=== PATIENT | female | born 1940 | race Caucasian/White ===

== ENCOUNTER 2017-06-27 15:46 | Inpatient (IN) | payer MEDICARE, OTHER ==
[2017-06-26 22:54] LABS: A/G RATIO 1.5 (0.7-1.9); ALBUMIN 4.1 G/DL (3.5-5.0); CALCIUM, SERUM 9.4 MG/DL (8.5-10.4); CHLORIDE, SERUM 98 MMOL/L (96-112); CO2 (CARBON DIOXIDE) 29 MMOL/L (24-34); CREATININE 0.89 MG/DL (0.55-1.02); GFR AFRICAN AMERICAN 73 ML/MIN (>=60); GFR NON AFRICAN AMERICAN 63 ML/MIN (>=60); GLOBULIN 2.7 G/DL (2.5-4.1); SGOT(AST) 134 U/L (5-40); SGPT(ALT) 257 U/L (5-65); SODIUM, SERUM 135 MMOL/L (135-148); TOTAL PROTEIN 6.8 G/DL (6.0-8.5)
[2017-06-26 22:56] LABS: ALKALINE PHOSPHATASE 315 U/L (45-117); BUN (BLOOD UREA NITROGEN) 10 MG/DL (6-23); GLUCOSE, SERUM 98 MG/DL (60-99); POTASSIUM, SERUM 3.8 MMOL/L (3.5-5.3); TOTAL BILIRUBIN 4.4 MG/DL (0-1.2)
[~2017-06-27] VITALS: Ht 152.4 cm; Wt 53.1 kg
--- NOTE | ~2017-06-27 | EGD ---
EGD REPORT [facility] [address] [place]. 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 Estimated blood loss: None. Procedure: Pre-Anesthesia Assessment: - ASA Grade Assessment: III - A patient with severe systemic disease. After obtaining informed consent, the endoscope was passed under direct vision. Throughout the procedure, the patient's blood pressure, pulse, and oxygen saturations were monitored continuously. The Endoscope was introduced through the mouth, and advanced to the second part of duodenum. The upper EUS was accomplished without difficulty. The patient tolerated the procedure well. Findings: Endosonographic Finding : A hypoechoic round mass was identified endosonographically in the ampulla. The mass measured 26 mm by 24 mm in maximal cross-sectional diameter. The endosonographic borders were well-defined. There was dilation in the common bile duct which measured up to 16 mm. There was no sign of significant endosonographic abnormality in the entire pancreas. Endosonographic imaging of the visualized portion of the liver showed no abnormalities. No lymph nodes were visualized in the celiac region (level 20), peripancreatic region and merced hepatis region. A limited doppler examination was performed and revealed no significant vascular abnormalities. Impression: - A 26 x 24 mm mass was found in the ampulla. - There was dilation in the common bile duct which measured up to 16 mm. - There was no sign of significant pathology in the entire pancreas. - No lymph nodes were visualized in the celiac region (level 20), peripancreatic region and merced hepatis EGD REPORT [address] [address] NAME: INGA DAVIES : 40 STATUS : DIS IN PAT#: [id number] AGE: 76 ADM/REG DATE : 06/27/17 MR#: [id number] REPORT SERV DATE: 07/06/17 DICTATED BY: JIM KAHN DATE: 07/06/17 REPORT STATUS : Draft TRANSCRIBED BY: [employer] DATE: 07/06/17 region. - A limited doppler examination was performed and revealed no significant vascular abnormalities. Recommendation: - Perform an ERCP today. Procedure Code(s): --- Professional --- 93493, Esophagogastroduodenoscopy, flexible, transoral; with endoscopic ultrasound examination limited to the esophagus, stomach or duodenum, and adjacent structures Diagnosis Code(s): --- Professional --- K83.8, Other specified diseases of biliary tract CPT copyright 2013 [employer] [place] [employer]. All rights reserved. The codes documented in this report are preliminary and upon director of reimbursement review may be revised to meet current compliance requirements. Jim Kahn MD JIM KAHN MD 06/29/2017 10:51 AM This report has been signed electronically. Number of Addenda: 0 Note Initiated On: 06/29/2017 10:06 AM Scope Withdrawal Time 0 hours 0 minutes 0 seconds [address] [place] [address]
--- NOTE | ~2017-06-27 | DS ---
Discharge Summary [id number] [place]. [address] NAME: MARIALUISA DAVIES : 40 STATUS : DIS IN PAT#: [id number] AGE: 76 ADM/REG DATE : 06/27/17 MR#: [id number] REPORT SERV DATE: 07/02/17 DICTATED BY: ALFREDO KUMAR II DATE: 07/01/17 REPORT STATUS : Draft TRANSCRIBED BY: MODL DATE: 07/01/17 ADMISSION DATE: 06/27/2017 DISCHARGE DATE: 07/01/2017 DISCHARGE DIAGNOSES: 1. Acute constipation. 2. Chronic hypertension. 3. Paroxysmal atrial fibrillation. 4. Biliary obstruction, status post PCT tube. 5. Elevated liver enzymes. 6. Ampullary mass. CONSULTATIONS: 1. Dr. Weaver, Surgery. 2. Placido Collins ASSISTANT TO THE CEO, GI. PERTINENT TESTS AND PROCEDURES: 1. CT of abdomen and pelvis with and without contrast, obtained outpatient on 06/27/2017 prior to this admission. Impression:. a. Severe intra and extrahepatic biliary obstruction secondary to 2.7 cm enhancing mass at level of the ampulla of Vater. 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 Unlikely to be a pancreatic adenocarcinoma based on degree of hyperenhancement. No significant pancreatic ductal dilatation. No infiltration of mass beyond duodenum or pancreatic head. b. No evidence of adenopathy or metastatic disease in abdomen or pelvis. c. Moderate fecal burden in the rectum. 2. Upper EUS, 06/29/2017, impression: 26 x 24 mm mass found in the ampulla. Dilation of common bile duct measured up to 16 mm. No sign of significant pathology in the entire pancreas. No lymph nodes visualized in celiac region, peripancreatic region, or merced hepatis region. 3. ERCP performed, 06/29/2017, the biliary pancreatic junction was obstructed by what appeared to be a mass. Friability and contact bleeding with engaging the papilla with sphincterotome making cannulation attempts very difficult. Ampulla was biopsied. Failed cannulation of the common bile duct. 4. Successful placement of 10-Mongolian pigtail biliary drainage catheter. Drainage catheter past obstructing mass in the distal common bile duct achieving internal and external drainage of the biliary tree, 06/30/2017. HOSPITAL COURSE: Please refer to history and physical dated 06/28/2017 provided by Alicja Neves, nurse practitioner, for complete details pertaining to patient's initial presentation upon admission and health history. Also. Refer to consultations dated 06/28/2017 and 06/29/2017 provided by Placido Gonzalez, nurse practitioner, GI, and Dr. Grabiel Weaver, Surgery. Briefly, the patient is a 76-year-old female with a past medical history significant for Discharge Summary [address] [address] NAME: MARIALUISA DAVIES : 40 STATUS : DIS IN PAT#: [id number] AGE: 76 ADM/REG DATE : 06/27/17 MR#: [id number] REPORT SERV DATE: 07/02/17 DICTATED BY: ALFREDO KUMAR II DATE: 07/01/17 REPORT STATUS : Draft TRANSCRIBED BY: [employer] DATE: 07/01/17 hypertension and paroxysmal atrial fibrillation, who presented to [facility] for direct admission arranged by primary care provider for chief complaint of intractable abdominal pain, nausea, and decreased appetite in the setting of biliary obstruction secondary to mass. Prior to this admission, the patient reported feeling sick for approximately two weeks with progressive symptoms to include intractable right upper quadrant abdominal pain, intermittent nausea, and significantly decreased appetite for the past week. The patient was being followed by primary care physician for progressive abdominal pain in the setting of elevated liver enzymes. The patient underwent outpatient CT of abdomen and pelvis with and without contrast on the day of hospital admission for further evaluation of progressively worsening abdominal pain and nausea. CT report indicated severe intra and extrahepatic biliary obstruction secondary to a mass at the level of the ampulla of Vater. During this admission, Surgery and Gastroenterology were consulted for evaluation and recommendations to include EUS/ERCP with possible stent placement and surgical consideration. The patient underwent EUS and ERCP on 06/29/2017. Failed cannulation of the common bile duct secondary to friability of mass and contact bleeding. The patient underwent successful placement of PCT tube on 06/30/2017. Per Surgery recommendations, the patient presented with no evidence of the need for acute surgical intervention. Surgery discussed with the patient that she most likely has a malignancy of the ampulla. Assuming biopsy obtained during ERCP confirms malignancy, the patient will likely need a Whipple procedure or pancreaticoduodenectomy. Preliminary pathology report regarding biopsy of ampullary mass show benign small bowel mucosa within normal limits. No evidence of neoplasm. Step sections are pending and will be followed by Dr. Weaver, Surgery. On the day of discharge, the patient reports "feeling better than she has felt in two weeks." The patient is able to tolerate full liquid diet without nausea, vomiting, or abdominal pain. The patient's only complaint at the time of discharge is constipation. The patient is eager to return home and will follow up with Dr. Weaver for repeat lab work and biopsy results in one week. 1. Acute constipation. The patient has positive bowel sounds throughout all quadrants and positive flatus. No abdominal distention or pain. The patient will receive one dose of MiraLAX prior to discharge and continue MiraLAX p.o. daily at home and Senokot. 2. Chronic hypertension. The patient's blood pressure has been stable throughout this admission. Continue home dose of atenolol. 3. Paroxysmal atrial fibrillation. Requested ignition specialist medical records upon admission, however, never received. The patient's heart rate has been controlled, regular rhythm, throughout this admission. Follow up with Dr. Paulino, ignition specialist, at [facility] as routinely scheduled. 4. Acute biliary obstruction. This is secondary to ampullary mass. The patient tolerated PCT tube placement well. The patient's liver enzymes remain elevated; however, expect Discharge Summary [address] [address] NAME: MARIALUISA DAVIES : 40 STATUS : DIS IN PAT#: [id number] AGE: 76 ADM/REG DATE : 06/27/17 MR#: [id number] REPORT SERV DATE: 07/02/17 DICTATED BY: ALFREDO KUMAR II DATE: 07/01/17 REPORT STATUS : Draft TRANSCRIBED BY: MODL DATE: 07/01/17 numbers to start trending down within the next several days to two weeks. Upon admission, the patient's total bilirubin was reported to be 4.4 and continued to trend upward during this admission to 9.0 on 06/30/2017 prior to placement of PCT tube. On day of discharge, total bilirubin 8.9. Alkaline phosphatase, ALT, and AST are trending downward. The patient will follow up with Dr. Weaver in one week for repeat labs. 5. New diagnosis of mass at the level of ampulla of Vater. The patient is status post PCT tube with likely surgical intervention in the near future. CA-125 of 10.8. CA-19-9 of 178.6. Future plan of care to be determined per Dr. Weaver, Surgery. DISCHARGE CONDITION: At the time of discharge, the patient is hemodynamically stable. DISCHARGE DIET: Regular diet as tolerated. DISCHARGE MEDICATIONS: 1. Atenolol 25 mg tablet p.o. daily at bedtime. 2. Multivitamin one tablet p.o. daily at bedtime. 3. Artificial tears one drop to both eyes three times daily as needed. 4. MiraLAX 17 g p.o. every a.m., hold for diarrhea. 5. Senokot two tablets p.o. h.s. as needed. DISPOSITION INSTRUCTIONS: 1. Follow up with Dr. Weaver, Surgery, in one week. The patient instructed to call office, 07/02/2017, and to schedule appointment. 2. The patient and her daughter were instructed on signs and symptoms that would indicate emergent return to the emergency department. Signs and symptoms include acute onset of fever of 100.4 or greater lasting more than one hour, intractable chills, nausea, vomiting, abdominal distention, change in PCT tube output to include significant decrease in output or consistent bloody drainage. Primary care provider, Dr. Rogerio Ventura. Primary general surgeon, Dr. Weaver. Collaborating physician, Dr. Alfredo Kumar. [facility] MARCELO Gibson Alfredo Kumar II, MD / [id number] Discharge Summary [address] [place] [place] [address] NAME: MARIALUISA DAVIES : 40 STATUS : DIS IN [facility]#: [id number] AGE: 76 ADM/REG DATE : 06/27/17 MR#: [id number] REPORT SERV DATE: 07/02/17 DICTATED BY: ALFREDO KUMAR II DATE: 07/01/17 REPORT STATUS : Draft TRANSCRIBED BY: [employer] DATE: 07/01/17 CC: MD Rogerio Mckay II, M.D. Carol Gruver, M.D. Destin Griffin-Trussell, FNP Richard Hunter Jennings III, M.D.
--- NOTE | ~2017-06-27 | CN ---
Consultation Report [facility] [address] [place]. [address] NAME: INGA DAVIES : 40 STATUS : ADM IN PAT#: [id number] AGE: 76 ADM/REG DATE : 06/27/17 MR#: [id number] REPORT SERV DATE: 06/28/17 DICTATED BY: KOJO SALAZAR DATE: 06/28/17 REPORT STATUS : Draft TRANSCRIBED BY: MODL DATE: 06/28/17 GI CONSULTATION DATE OF CONSULTATION: 06/28/2017 Inga Davies is a 76-year-old female patient admitted on 06/27/2017. REQUESTING PHYSICIAN: Dr. Weaver. REASON FOR CONSULTATION: Evaluation and management of patient for endoscopic ultrasound/ERCP with possible stent placement. HISTORY OF PRESENT ILLNESS: Ms. Davies is a very pleasant 76-year-old female patient, who has been seen by Dr. Magan Clark in the past, who presented to [facility] as a direct admission from her primary care physician's office, Dr. Ventura, after abnormal CT scan and laboratory values were found. She gives me a history of 2 weeks of epigastric right upper quadrant abdominal pain, early satiety, and anorexia. She states that overall she reports that she was feeling "sick" with some vague nausea around two weeks ago. Her symptoms have progressively gotten worse. She states that she would eat, within 2 to 3 hours she would have burning in the right upper quadrant and epigastric region. She would feel bloated and distended. She states she never vomited but she was extremely nauseous. She has developed yellowing of the skin within the last week. She has been itching for the last three days. She went to see Dr. Ventura for these complaints. He obtained labs which showed elevation in her liver function testing. After these came back, he sent her for a CT scan of the abdomen and pelvis on the with and without contrast. This exam showed that she had severe intra and extrahepatic biliary obstruction secondary to a 2.7 cm enhancing mass that was found at the level of the ampulla of Vater. Findings were concerning for ampullary carcinoma, less likely neuroendocrine tumor. There was no significant pancreatic ductal dilatation. No infiltration of the mass beyond the duodenum or pancreatic head. Also there was no evidence of adenopathy or metastatic disease in the abdomen or pelvis. Initially Dr. Weaver was consulted for surgical evaluation. After evaluation of the patient, he felt an endoscopic ultrasound/ERCP with tissue sampling and stent placement would be beneficial prior to surgical intervention, thus GI consultation was requested. I have seen, assessed, and discussed with Ms. Davies, ERCP with stent placement as well as endoscopic ultrasound. The risks, benefits, alternatives, and complications were detailed for her to include, but not limited to the risk of bleeding, perforation, infection, reaction to medication, as well as cardiac and pulmonary side effects. She is agreeable to proceed. PAST MEDICAL HISTORY: She has a past medical history that is positive for hypertension, paroxysmal atrial fibrillation; no anticoagulants on board. SURGERIES: Include cataract bilaterally, arteriogram. PROCEDURES: Include EGD and colonoscopy. Consultation Report [address] [place]. [address] NAME: INGA DAVIES : 40 STATUS : ADM IN [facility]#: [id number] AGE: 76 ADM/REG DATE : 06/27/17 MR#: [id number] REPORT SERV DATE: 06/28/17 DICTATED BY: KOJO SALAZAR DATE: 06/28/17 REPORT STATUS : Draft TRANSCRIBED BY: [employer] DATE: 06/28/17 FAMILY HISTORY: She states that her father had some type of stomach/small bowel cancer with metastasis to the bones. Her mother at 86 secondary to complications from contraction of C. diff. She has other family members who were positive for some type of biliary cancer. ALLERGIES: ARE LISTED TO SULFA AND EPINEPHRINE. HOME MEDICATIONS: Artificial Tears, Tenormin, and a multivitamin. REVIEW OF SYSTEMS: A 10-point review of systems has been obtained with pertinent positives being addressed in the history of present illness. PHYSICAL EXAMINATION: VITAL SIGNS: Temperature is 98.5, pulse is 59, respirations of 16, and blood pressure 142/61. NEUROLOGIC: Physical exam reveals an alert, thin female, resting in bed. GENERAL: She is cooperative. She is in no acute distress. She is awake, alert, and oriented x3. HEAD, EARS, EYES, NOSE, AND THROAT: She has notable scleral icterus. Pupils are equal, round, and reactive to light and accommodation. Normocephalic and atraumatic. NECK: Supple. No JVD. No palpable nodes. LUNGS: Clear anteriorly with normal respiratory effort exhibited and equal expansion. CARDIOVASCULAR SYSTEM: Regular rate and rhythm. ABDOMEN: Soft and flat with right upper quadrant tenderness to palpation. Exquisitely tender right underneath the right rib cage. No rebound or guarding. Active bowel sounds. EXTREMITIES: No edema. Normal distal pulses. SKIN: Warm, dry, and intact with notable jaundice. PERTINENT LABORATORY DATA: Sodium 137, potassium is 3.9, BUN is 10, and creatinine 0.73. White count 4.4, hemoglobin 10.3, and hematocrit of 29.4. Total bilirubin is 5.9, alkaline phosphatase 298, ALT 227, AST 156, lipase 227; CA-125 was checked and 10.8. ASSESSMENT AND PLAN: 1. Epigastric abdominal pain in right upper quadrant. 2. Nausea, early satiety, and anorexia. 3. Biliary obstruction secondary to a 2.7 cm mass found at the level of the ampulla of Vater. 4. Elevated LFTs secondary to biliary obstruction secondary to a 2.7 cm mass found at the level of the ampulla of Vater. 5. Anorexia. PLAN: 1. Hold her heparin. 2. Sips of liquids with n.p.o. after midnight. Consultation Report [address] [place]. [address] NAME: INGA DAVIES : 40 STATUS : ADM IN [facility]#: [id number] AGE: 76 ADM/REG DATE : 06/27/17 MR#: [id number] REPORT SERV DATE: 06/28/17 DICTATED BY: KOJO SALAZAR DATE: 06/28/17 REPORT STATUS : Draft TRANSCRIBED BY: CE[employer] DATE: 06/28/17 3. ERCP with possible stent placement and endoscopic ultrasound on 06/29/2017, by Dr. Morris. 4. We will obtain morning labs. 5. We will administer preprocedure rectal indomethacin. We will follow. Other recommendations to follow endoscopy. [facility]CELESTE SAMARIA Lester / [id number] CC: MD Rogerio Mckay II, M.D.
--- NOTE | ~2017-06-27 | EGD ---
EGD REPORT [facility] [address] [address] NAME: MARIALUISA DAVIES : 40 STATUS : DIS IN PAT#: [id number] AGE: 76 ADM/REG DATE : 06/27/17 MR#: [id number] REPORT SERV DATE: 07/06/17 DICTATED BY: ALIX KAHN DATE: 07/06/17 REPORT STATUS : Draft TRANSCRIBED BY: [employer] DATE: 07/06/17 THIS EXAM WAS SENT IN ERROR
--- NOTE | ~2017-06-27 | HP ---
History And Physical [place] [id number] [facility] [place]. [address] NAME: MARIALUISA DAVIES : [birth year] STATUS : ADM IN [facility]#: [id number] AGE: 76 ADM/REG DATE : 06/27/17 MR#: [id number] REPORT SERV DATE: 06/28/17 DICTATED BY: ALFREDO KUMAR II DATE: 06/27/17 REPORT STATUS : Draft TRANSCRIBED BY: MODL DATE: 06/27/17 DATE OF ADMISSION: 06/27/2017 POINT OF ENTRY: Direct admission. PRIMARY DIGITAL TECHNICIAN: Zenaida Paulino M.D. PRIMARY E COMMERCE WEB DEVELOPER: Alfredo Soria M.D. CHIEF COMPLAINT: Intractable abdominal pain, nausea and decreased appetite in setting of biliary obstruction secondary to mass. HISTORY OF PRESENTING ILLNESS: The patient's history was obtained through interview with the patient and review of very limited [facility] records. The patient is a 76-year-old female with a past medical history significant for hypertension and atrial fibrillation. The patient reports feeling "sick" for approximately two weeks with progressive symptoms to include intractable right upper quadrant abdominal pain, intermittent nausea, and significantly decreased appetite for the past week. The patient is under the care of Dr. Ventura, primary care provider. Dr. Ventura was following the patient for progressive abdominal pain in the setting of elevated liver enzymes. The patient underwent outpatient CT of the abdomen and pelvis with and without contrast prior to today's admission for further evaluation of progressively worsening abdominal pain and nausea. CT report indicated severe intra and extrahepatic biliary obstruction secondary to a mass at the level of the ampulla of Vater. Dr. Ventura referred the patient for direct admission to [facility] for further evaluation and treatment of biliary obstruction and surgical consult by Dr. Weaver. The patient just complains of epigastric and right upper quadrant abdominal pain radiating through to her back. Pain is described as constant, dull and deep with intermittent sharp stabbing pains with deep inspiration. The patient has significantly reduced appetite and is eating very little secondary to abdominal pain and intermittent nausea. The patient has not had any episodes of vomiting. REVIEW OF SYSTEMS: Negative for fever, chills, weight loss, headache, chest pain, shortness of breath, cough, wheeze, constipation, dysuria. Positive for epigastric and right upper quadrant abdominal pain radiating to back, intermittent nausea, and decreased appetite. HOME MEDICATIONS: 1. Refresh artificial tears one drop three times a day in both eyes as needed. 2. Atenolol 25 mg tablet p.o. at bedtime. History And Physical [address] [place]. [address] NAME: MARIALUISA DAVIES : [birth year] STATUS : ADM IN [facility]#: [id number] AGE: 76 ADM/REG DATE : 06/27/17 MR#: [id number] REPORT SERV DATE: 06/28/17 DICTATED BY: ALFREDO KUMAR II DATE: 06/27/17 REPORT STATUS : Draft TRANSCRIBED BY: CELESTE DATE: 06/27/17 3. [id number]-[id number] multivitamin p.o. daily. ALLERGIES: 1. SULFA, REACTION NAUSEA AND VOMITING. 2. EPINEPHRINE, RESULT TACHYCARDIA REQUIRING TREATMENT. SOCIAL HISTORY: The patient has been for 56 years. She has two children. 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 Never smoker. No alcohol use. FAMILY HISTORY: Mother at age 86 from complications related to C. diff. Father at age 73 years of age from complications related to bone cancer/adenocarcinoma. Two siblings, one of which is , cause of complications related to COPD. Family history positive for breast cancer, biliary cancer, stroke, and diabetes. PAST MEDICAL HISTORY: 1. Hypertension. 2. AFib, paroxysmal. PAST SURGICAL HISTORY: 1. Cataract surgery, bilaterally remote. 2. Arteriogram three to four years ago. PHYSICAL EXAMINATION: VITAL SIGNS: Oxygen saturation 99% on room air, blood pressure 130/59, temperature 98.0, pulse 85, respirations 16, weight 49.89 kg, height 5 feet 5.5 inches. NEUROLOGIC: The patient is alert with no focal deficits. GENERAL: The patient is cooperative and in no apparent distress. Awake, alert, oriented x3. Good health historian. NECK: No lymphadenopathy. CHEST: No tenderness to palpation. LUNGS: Clear throughout to auscultation. No wheezes. No rhonchi. Normal work of breathing. CARDIOVASCULAR: Regular rate and rhythm. No murmurs, rubs, or gallops. ABDOMEN: Soft. No distention. Bowel sounds present in all quadrants. Significant tenderness to epigastric region and right upper quadrant. EXTREMITIES: No edema to bilateral lower extremities. PSYCHIATRIC: Normal affect. Demonstrates good judgment and decision making ability. LABORATORY DATA: Labs obtained 06/26/2017 prior to admission: Sodium 135, potassium 3.8, chloride 98, bicarb 29, BUN 10, creatinine 0.89, total bilirubin 4.4, alk phos 315, ALT 257, AST 134. TSH 4.780. PERTINENT TESTS AND PROCEDURES: CT of abdomen and pelvis with and without contrast obtained outpatient prior to this admission 06/27/2017, impression: 1. A. Severe intra and extrahepatic biliary obstruction secondary to 2.7 cm enhancing mass at level of the ampulla of Vater. 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 Unlikely to be pancreatic adenocarcinoma History And Physical [address] [address] NAME: MARIALUISA DAVIES : 40 STATUS : ADM IN [facility]#: [id number] AGE: 76 ADM/REG DATE : 06/27/17 MR#: [id number] REPORT SERV DATE: 06/28/17 DICTATED BY: ALFREDO KUMAR II DATE: 06/27/17 REPORT STATUS : Draft TRANSCRIBED BY: CELESTE DATE: 06/27/17 based on degree of hyper-enhancement. No significant pancreatic ductal dilatation. 2. B. No evidence of adenopathy or metastatic disease in the abdomen or pelvis. 3. C. Moderate fecal burden in the rectum. ASSESSMENT AND PLAN: 1. Intractable abdominal pain, acute onset. The pain is most severe in the epigastric and right upper quadrant regions. Pain related to biliary obstruction. Provide reasonable pain control with IV and oral pain medications. Adjust as indicated per the patient's response. 2. Nausea without vomiting. This has been present for approximately two weeks. This is secondary to biliary obstruction with new diagnosis of mass at level of ampulla of Vater. Provide antiemetics to include Zofran p.o. and IV p.r.n. 3. Decreased appetite, acute. This is secondary to intractable abdominal pain in the setting of biliary obstruction. Provide GI, soft diet, and nutritional shake supplements as indicated. N.p.o. after midnight while awaiting Dr. Weaver' surgical consultation. 4. Chronic hypertension. The patient's blood pressure is well controlled upon admission. Continue home dose of beta-evangelina. Hold for systolic blood pressure less than 110, heart rate less than 60. 5. Chronic atrial fibrillation. No home anticoagulation. Continue home dose of beta- evangelina. Rate controlled upon admission. Regular rhythm. 6. Biliary obstruction. This is new finding and is secondary to a mass at the level of the ampulla of Vater. Dr. Weaver has been consulted for evaluation and surgical recommendations. CODE STATUS: Full code. The care of this patient will be transferred to the service of Dr. Alfredo Kumar. COLLABORATING PHYSICIAN: Alfredo Kumar II, MD. DICTATED BY: MARCELO Gibson/CELESTE Alfredo Kumar II, MD / [id number] CC: MD Rogerio Mckay II, M.D.
--- NOTE | ~2017-06-27 | EGD ---
EGD REPORT [facility] [address] [place] 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 Estimated blood loss: None. Procedure: Pre-Anesthesia Assessment: - ASA Grade Assessment: III - A patient with severe systemic disease. After obtaining informed consent, the endoscope was passed under direct vision. Throughout the procedure, the patient's blood pressure, pulse, and oxygen saturations were monitored continuously. The Endoscope was introduced through the mouth, and advanced to the second part of duodenum. The upper EUS was accomplished without difficulty. The patient tolerated the procedure well. Findings: Endosonographic Finding : A hypoechoic round mass was identified endosonographically in the ampulla. The mass measured 26 mm by 24 mm in maximal cross-sectional diameter. The endosonographic borders were well-defined. There was dilation in the common bile duct which measured up to 16 mm. There was no sign of significant endosonographic abnormality in the entire pancreas. Endosonographic imaging of the visualized portion of the liver showed no abnormalities. No lymph nodes were visualized in the celiac region (level 20), peripancreatic region and merced hepatis region. A limited doppler examination was performed and revealed no significant vascular abnormalities. Impression: - A 26 x 24 mm mass was found in the ampulla. - There was dilation in the common bile duct which measured up to 16 mm. - There was no sign of significant pathology in the entire pancreas. - No lymph nodes were visualized in the celiac region (level 20), peripancreatic region and merced hepatis EGD REPORT [address] [address] NAME: INGA DAVIES : 40 STATUS : DIS IN PAT#: [id number] AGE: 76 ADM/REG DATE : 06/27/17 MR#: [id number] REPORT SERV DATE: 07/06/17 DICTATED BY: JIM KAHN DATE: 07/06/17 REPORT STATUS : Draft TRANSCRIBED BY: [employer] DATE: 07/06/17 region. - A limited doppler examination was performed and revealed no significant vascular abnormalities. Recommendation: - Perform an ERCP today. Procedure Code(s): --- Professional --- 95108, Esophagogastroduodenoscopy, flexible, transoral; with endoscopic ultrasound examination limited to the esophagus, stomach or duodenum, and adjacent structures Diagnosis Code(s): --- Professional --- K83.8, Other specified diseases of biliary tract CPT copyright 2013 [place] [employer]. All rights reserved. The codes documented in this report are preliminary and upon carbon capture power plant manager review may be revised to meet current compliance requirements. Jim Kahn MD JIM KAHN MD 06/29/2017 10:51 AM This report has been signed electronically. Number of Addenda: 0 Note Initiated On: 06/29/2017 10:06 AM Scope Withdrawal Time 0 hours 0 minutes 0 seconds [address] [place] [id number]
--- NOTE | ~2017-06-27 | EGD ---
EGD REPORT [facility] [address] [place] 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 Estimated blood loss: Minimal. Procedure: Pre-Anesthesia Assessment: - ASA Grade Assessment: III - A patient with severe systemic disease. After obtaining informed consent, the scope was passed under direct vision. Throughout the procedure, the patient's blood pressure, pulse, and oxygen saturations were monitored continuously. The [facility] Q180V [id number] was introduced through the mouth, and advanced to the duodenum without successful cannulation. The ERCP was accomplished without difficulty. The patient tolerated the procedure well. Findings: The tank truck engine mechanic film was normal. The esophagus was successfully intubated under direct vision without detailed examination of the pharynx, larynx, and associated structures, and upper GI tract. The upper GI tract was grossly normal. The major papilla was bulging with what appeared to be a large submucosal mass. Despite numerous attempts over more than 30 minutes, the bile duct could not be cannulated with the short-nosed traction sphincterotome. The biliary pancreatic junction was obstructed by what appeared to be a mass, and there was friability and contact bleeding with engaging the papilla with the sphinctertome, making cannulation attempts very difficult. The ampulla was biopsied with a cold forceps for histology with care to avoid the biliary/pancreatic orifice. The endoscope was withdrawn from the patient. Impression: - The major papilla appeared to be bulging with a submucosal mass. - A biliary tract obstruction secondary to what appeared to be a mass was found in the biliary pancreatic junction. - Failed cannulation of the CBD EGD REPORT [place] [address] [place]. [address] NAME: INGA DAVIES : 40 STATUS : DIS IN PAT#: [id number] AGE: 76 ADM/REG DATE : 06/27/17 MR#: [id number] REPORT SERV DATE: 07/06/17 DICTATED BY: JIM KAHN DATE: 07/06/17 REPORT STATUS : Draft TRANSCRIBED BY: [facility] DATE: 07/06/17 Recommendation: - Return patient to hospital orr for ongoing care. - If biliary decompression is required prior to surgery, a PTC tube will be needed for biliary drainage. Procedure Code(s): --- Professional --- 77849, 52, Endoscopic retrograde cholangiopancreatography (ERCP); with biopsy, single or multiple Diagnosis Code(s): --- Professional --- K83.9, Disease of biliary tract, unspecified K83.1, Obstruction of bile duct K83.8, Other specified diseases of biliary tract CPT copyright 2013 [place] [employer]. All rights reserved. The codes documented in this report are preliminary and upon certified coder review may be revised to meet current compliance requirements. Jim Kahn MD JIM KAHN MD 06/29/2017 11:54 AM This report has been signed electronically. Number of Addenda: 0 Note Initiated On: 06/29/2017 10:07 AM Scope Withdrawal Time 0 hours 0 minutes 0 seconds [address] [place] [address]
--- NOTE | ~2017-06-27 | EGD ---
EGD REPORT [facility] [address] [place]. 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 Estimated blood loss: Minimal. Procedure: Pre-Anesthesia Assessment: - ASA Grade Assessment: III - A patient with severe systemic disease. After obtaining informed consent, the scope was passed under direct vision. Throughout the procedure, the patient's blood pressure, pulse, and oxygen saturations were monitored continuously. The [facility] Q180V [id number] was introduced through the mouth, and advanced to the duodenum without successful cannulation. The ERCP was accomplished without difficulty. The patient tolerated the procedure well. Findings: The brick chimney builder film was normal. The esophagus was successfully intubated under direct vision without detailed examination of the pharynx, larynx, and associated structures, and upper GI tract. The upper GI tract was grossly normal. The major papilla was bulging with what appeared to be a large submucosal mass. Despite numerous attempts over more than 30 minutes, the bile duct could not be cannulated with the short-nosed traction sphincterotome. The biliary pancreatic junction was obstructed by what appeared to be a mass, and there was friability and contact bleeding with engaging the papilla with the sphinctertome, making cannulation attempts very difficult. The ampulla was biopsied with a cold forceps for histology with care to avoid the biliary/pancreatic orifice. The endoscope was withdrawn from the patient. Impression: - The major papilla appeared to be bulging with a submucosal mass. - A biliary tract obstruction secondary to what appeared to be a mass was found in the biliary pancreatic junction. - Failed cannulation of the CBD EGD REPORT [place] [id number] [facility] [place]. [address] NAME: INGA DAVIES : 40 STATUS : DIS IN PAT#: [id number] AGE: 76 ADM/REG DATE : 06/27/17 MR#: [id number] REPORT SERV DATE: 07/06/17 DICTATED BY: JIM KAHN DATE: 07/06/17 REPORT STATUS : Draft TRANSCRIBED BY: [employer] DATE: 07/06/17 Recommendation: - Return patient to hospital orr for ongoing care. - If biliary decompression is required prior to surgery, a PTC tube will be needed for biliary drainage. Procedure Code(s): --- Professional --- 22823, 52, Endoscopic retrograde cholangiopancreatography (ERCP); with biopsy, single or multiple Diagnosis Code(s): --- Professional --- K83.9, Disease of biliary tract, unspecified K83.1, Obstruction of bile duct K83.8, Other specified diseases of biliary tract CPT copyright 2013 [place] [employer] [place] [employer]. All rights reserved. The codes documented in this report are preliminary and upon tank shop supervisor review may be revised to meet current compliance requirements. Jim Kahn MD JIM KAHN MD 06/29/2017 11:54 AM This report has been signed electronically. Number of Addenda: 0 Note Initiated On: 06/29/2017 10:07 AM Scope Withdrawal Time 0 hours 0 minutes 0 seconds [address] [place] [address]
--- NOTE | ~2017-06-27 | CN ---
Consultation Report [place] [id number] [facility] [place]. [address] NAME: MARIALUISA DAVIES : [birth year] STATUS : ADM IN [facility]#: [id number] AGE: 76 ADM/REG DATE : 06/27/17 MR#: [id number] REPORT SERV DATE: 06/29/17 DICTATED BY: BRITTNEY SANTAMARIA III DATE: 06/29/17 REPORT STATUS : Draft TRANSCRIBED BY: MODL DATE: 06/29/17 CONSULTATION DATE OF CONSULTATION: 06/28/2017 REASON FOR CONSULT: 1. Periampullary pancreatic mass. 2. Obstructive jaundice. 3. Recommendation regarding surgical management. HISTORY OF PRESENT ILLNESS: I am asked to see this 76-year-old female, hospitalized for the above reasons. The patient complains of a several-week history of upper abdominal pain. The patient noted the onset of jaundice and dark urine associated with this pain. The pain is primarily in the epigastric area. It has been ongoing for about two weeks. This has been associated with anorexia. The patient also describes vague nausea. The patient has no prior history of similar symptoms. CT scan of the abdomen and pelvis were performed, which showed evidence for ampullary mass. The patient has no prior history of similar symptoms. She essentially has been healthy for most of her life and has had no for no previous surgery. PAST HISTORY: 1. Hypertension. 2. Atrial fibrillation. MEDICATIONS: Atenolol. ALLERGIES: SULFA, EPINEPHRINE. SOCIAL HISTORY: The patient is . She has no history of tobacco or alcohol use. FAMILY HISTORY: Remarkable for bone cancer, breast cancer, biliary cancer, and stroke. PHYSICAL EXAMINATION: GENERAL: This is a female, in no acute distress. She is alert and oriented x3. HEENT: Her sclerae are jaundiced. Cranial nerves 2-12 are normal. LUNGS: Clear. CARDIAC: Normal. ABDOMEN: Soft. Nontender. No masses. VITAL SIGNS: Blood pressure 159/68, temperature 97.7, pulse 54. EXTREMITIES: Normal with no edema. LABORATORY DATA: CT scan of the abdomen and pelvis shows an ampullary mass with biliary dilatation. No evidence for metastatic disease is seen. Hematocrit is 29. Electrolytes are unremarkable. Total bilirubin is markedly elevated at 5.9. Consultation Report [place] [id number] [facility] [place]. [address] NAME: MARIALUISA DAVIES : 40 STATUS : ADM IN PAT#: [id number] AGE: 76 ADM/REG DATE : 06/27/17 MR#: [id number] REPORT SERV DATE: 06/29/17 DICTATED BY: BRITTNEY SANTAMARIA III DATE: 06/29/17 REPORT STATUS : Draft TRANSCRIBED BY: CELESTE DATE: 06/29/17 ASSESSMENT: 1. 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 2. Obstructive jaundice secondary to #1. 3. Elevated liver enzymes secondary to #1. 4. Hypertension. PLAN: The patient is stable at this time with no evidence of the need for acute surgical intervention. 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 I have recommended GI consult for evaluation for upper EUS with biopsy of this mass and ERCP for stent placement. Assuming this confirms malignancy, the patient has indications for and will need a Whipple procedure or pancreaticoduodenectomy. This plan has been explained to the patient. I will ask Dr. Mannie Morris to see the patient in consultation for GI workup. Regarding the surgery, i.e., pancreaticoduodenectomy, this procedure, the risks, benefits, and alternatives have been explained to her. 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 This plan has been explained to the patient. Her questions have been answered. She understands and agrees to this as planned. RHMagalis/CELESTE Brittney Santamaria III, M.D. / [id number] CC: MD Rogerio Mckay II, M.D.
[~2017-06-27 15:46] MED LIST: ATEN25 PO; FISH-EPA1000 MG PO; MULTIVITAMI1 PO; ZESTRIL5 MG PO
[2017-06-27] MEDS ORDERED: ATEN25 PO (17:55)
[2017-06-27] MEDS ORDERED: MULTIVITAMI1 PO (17:56)
[2017-06-27] MEDS ORDERED: REFRESH OPH (17:56)
[2017-06-27 20:36] LABS: BASOPHILS 0.3 %; BASOPHILS ABSOLUTE 0.02 10/3/uL (0.0-0.16); EOSINOPHILS 0.1 %; EOSINOPHILS ABSOLUTE 0.01 10/3/uL (0.0-0.53); HEMATOCRIT 32.7 % (36.0-48.0); HEMOGLOBIN 11.3 g/dL (12.0-16.0); IMMATURE GRANULOCYTES 0.1 %; IMMATURE GRANULOCYTES ABSOLUTE 0.01 10/3/uL (0.0-0.11); LYMPHOCYTES 12.6 %; LYMPHOCYTES ABSOLUTE 0.85 10/3/uL (0.67-4.30); MEAN CORPUS HGB CONC 34.6 g/dL (32.0-36.0); MEAN CORPUSCULAR HEMOGLOB 30.7 pg (26.0-34.0); MEAN CORPUSCULAR VOLUME 88.9 fL (80-100); MEAN PLATELET VOLUME 10.9 fL (9.2-13.0); MONOCYTES 13.7 %; MONOCYTES ABSOLUTE 0.93 10/3/uL (0.21-1.20); NEUTROPHILS 73.2 %; NEUTROPHILS ABSOLUTE 4.95 10/3/uL (2.02-8.40); PLATELET COUNT 310 10/3/uL (150-400); RBC DISTRIBUTION WIDTH 15.1 % (12.0-16.0); RED CELL COUNT 3.68 10/6/uL (4.0-5.6); WHITE BLOOD CELLS 6.8 10/3/uL (4.5-10.5)
[2017-06-27 20:38] LABS: MANUAL DIFF NO %
[2017-06-27 20:42] LABS: INTERNATIONAL NORMAL RATI 0.9 UNITS (-); PROTIME (NOT ORD) 12.3 SEC (12.0-14.5)
[2017-06-27 20:52] LABS: A/G RATIO 1.1 (0.7-1.9); ALBUMIN 3.4 G/DL (3.5-5.0); BUN (BLOOD UREA NITROGEN) 9 MG/DL (6-23); CALCIUM, SERUM 9.1 MG/DL (8.5-10.4); CHLORIDE, SERUM 100 MMOL/L (96-112); CO2 (CARBON DIOXIDE) 25 MMOL/L (24-34); CREATININE 0.69 MG/DL (0.55-1.02); GFR AFRICAN AMERICAN 98 ML/MIN (>=60); GFR NON AFRICAN AMERICAN 85 ML/MIN (>=60); GLOBULIN 3.2 G/DL (2.5-4.1); GLUCOSE, SERUM 84 MG/DL (60-99); PHOSPHORUS, SERUM 2.5 MG/DL (2.5-4.5); POTASSIUM, SERUM 3.5 MMOL/L (3.5-5.3); SGOT(AST) 156 U/L (5-40); SGPT(ALT) 227 U/L (5-65); SODIUM, SERUM 135 MMOL/L (135-148); TOTAL PROTEIN 6.6 G/DL (6.0-8.5)
[2017-06-27 20:54] LABS: ALKALINE PHOSPHATASE 298 U/L (45-117); INDIRECT BILIRUBIN(NOT ORDER) 0.9 MG/DL (0.1-0.9); TOTAL BILIRUBIN 5.9 MG/DL (0-1.2)
[2017-06-28 06:26] LABS: BASOPHILS 0.5 %; BASOPHILS ABSOLUTE 0.02 10/3/uL (0.0-0.16); EOSINOPHILS 1.1 %; EOSINOPHILS ABSOLUTE 0.05 10/3/uL (0.0-0.53); HEMATOCRIT 29.4 % (36.0-48.0); HEMOGLOBIN 10.3 g/dL (12.0-16.0); IMMATURE GRANULOCYTES 0.2 %; IMMATURE GRANULOCYTES ABSOLUTE 0.01 10/3/uL (0.0-0.11); LYMPHOCYTES 19.9 %; LYMPHOCYTES ABSOLUTE 0.88 10/3/uL (0.67-4.30); MANUAL DIFF NO %; MEAN CORPUSCULAR HEMOGLOB 30.9 pg (26.0-34.0); MEAN CORPUSCULAR VOLUME 88.3 fL (80-100); MEAN PLATELET VOLUME 11.1 fL (9.2-13.0); MONOCYTES 12.2 %; MONOCYTES ABSOLUTE 0.54 10/3/uL (0.21-1.20); NEUTROPHILS 66.1 %; NEUTROPHILS ABSOLUTE 2.93 10/3/uL (2.02-8.40); PLATELET COUNT 287 10/3/uL (150-400); RBC DISTRIBUTION WIDTH 15.2 % (12.0-16.0); RED CELL COUNT 3.33 10/6/uL (4.0-5.6); WHITE BLOOD CELLS 4.4 10/3/uL (4.5-10.5)
[2017-06-28 06:43] LABS: BUN (BLOOD UREA NITROGEN) 10 MG/DL (6-23); CALCIUM, SERUM 8.7 MG/DL (8.5-10.4); CHLORIDE, SERUM 102 MMOL/L (96-112); CO2 (CARBON DIOXIDE) 26 MMOL/L (24-34); CREATININE 0.73 MG/DL (0.55-1.02); GFR AFRICAN AMERICAN 93 ML/MIN (>=60); GFR NON AFRICAN AMERICAN 80 ML/MIN (>=60); GLUCOSE, SERUM 84 MG/DL (60-99); POTASSIUM, SERUM 3.9 MMOL/L (3.5-5.3); SODIUM, SERUM 137 MMOL/L (135-148)
[2017-06-29 05:20] LABS: BASOPHILS 0.5 %; BASOPHILS ABSOLUTE 0.02 10/3/uL (0.0-0.16); EOSINOPHILS 1.1 %; EOSINOPHILS ABSOLUTE 0.05 10/3/uL (0.0-0.53); HEMATOCRIT 30.2 % (36.0-48.0); HEMOGLOBIN 10.4 g/dL (12.0-16.0); IMMATURE GRANULOCYTES 0.2 %; IMMATURE GRANULOCYTES ABSOLUTE 0.01 10/3/uL (0.0-0.11); LYMPHOCYTES 14.9 %; LYMPHOCYTES ABSOLUTE 0.66 10/3/uL (0.67-4.30); MEAN CORPUS HGB CONC 34.4 g/dL (32.0-36.0); MEAN CORPUSCULAR HEMOGLOB 30.4 pg (26.0-34.0); MEAN CORPUSCULAR VOLUME 88.3 fL (80-100); MONOCYTES 14.9 %; MONOCYTES ABSOLUTE 0.66 10/3/uL (0.21-1.20); NEUTROPHILS 68.4 %; NEUTROPHILS ABSOLUTE 3.02 10/3/uL (2.02-8.40); PLATELET COUNT 297 10/3/uL (150-400); RBC DISTRIBUTION WIDTH 15.2 % (12.0-16.0); RED CELL COUNT 3.42 10/6/uL (4.0-5.6); WHITE BLOOD CELLS 4.4 10/3/uL (4.5-10.5)
[2017-06-29 05:23] LABS: INTERNATIONAL NORMAL RATI 0.9 UNITS (-); MANUAL DIFF NO %; PROTIME (NOT ORD) 12.3 SEC (12.0-14.5)
[2017-06-29 05:37] LABS: CALCIUM, SERUM 8.7 MG/DL (8.5-10.4); CHLORIDE, SERUM 101 MMOL/L (96-112); CO2 (CARBON DIOXIDE) 27 MMOL/L (24-34); CREATININE 0.63 MG/DL (0.55-1.02); GFR AFRICAN AMERICAN 101 ML/MIN (>=60); GFR NON AFRICAN AMERICAN 87 ML/MIN (>=60); POTASSIUM, SERUM 4.2 MMOL/L (3.5-5.3); SGOT(AST) 150 U/L (5-40); SGPT(ALT) 200 U/L (5-65); SODIUM, SERUM 133 MMOL/L (135-148); TOTAL PROTEIN 5.6 G/DL (6.0-8.5)
[2017-06-29 05:38] LABS: ALBUMIN 2.7 G/DL (3.5-5.0); ALKALINE PHOSPHATASE 241 U/L (45-117); BUN (BLOOD UREA NITROGEN) 6 MG/DL (6-23); DIRECT BILIRUBIN 6.3 MG/DL (0.0-0.4); GLUCOSE, SERUM 125 MG/DL (60-99); INDIRECT BILIRUBIN(NOT ORDER) 1.2 MG/DL (0.1-0.9); TOTAL BILIRUBIN 7.5 MG/DL (0-1.2)
[2017-06-30 05:25] LABS: BASOPHILS 0.2 %; BASOPHILS ABSOLUTE 0.01 10/3/uL (0.0-0.16); EOSINOPHILS 1.1 %; EOSINOPHILS ABSOLUTE 0.06 10/3/uL (0.0-0.53); HEMOGLOBIN 10.1 g/dL (12.0-16.0); IMMATURE GRANULOCYTES 0.4 %; IMMATURE GRANULOCYTES ABSOLUTE 0.02 10/3/uL (0.0-0.11); LYMPHOCYTES 10.4 %; LYMPHOCYTES ABSOLUTE 0.59 10/3/uL (0.67-4.30); MEAN CORPUS HGB CONC 34.8 g/dL (32.0-36.0); MEAN CORPUSCULAR HEMOGLOB 30.6 pg (26.0-34.0); MEAN CORPUSCULAR VOLUME 87.9 fL (80-100); MEAN PLATELET VOLUME 10.8 fL (9.2-13.0); MONOCYTES 9.5 %; MONOCYTES ABSOLUTE 0.54 10/3/uL (0.21-1.20); NEUTROPHILS 78.4 %; NEUTROPHILS ABSOLUTE 4.44 10/3/uL (2.02-8.40); PLATELET COUNT 301 10/3/uL (150-400); WHITE BLOOD CELLS 5.7 10/3/uL (4.5-10.5)
[2017-06-30 05:33] LABS: MANUAL DIFF NO %
[2017-06-30 05:42] LABS: A/G RATIO 0.8 (0.7-1.9); ALBUMIN 2.5 G/DL (3.5-5.0); ALKALINE PHOSPHATASE 243 U/L (45-117); BUN (BLOOD UREA NITROGEN) 9 MG/DL (6-23); CALCIUM, SERUM 8.4 MG/DL (8.5-10.4); CHLORIDE, SERUM 99 MMOL/L (96-112); CO2 (CARBON DIOXIDE) 24 MMOL/L (24-34); CREATININE 0.92 MG/DL (0.55-1.02); GFR AFRICAN AMERICAN 70 ML/MIN (>=60); GFR NON AFRICAN AMERICAN 60 ML/MIN (>=60); GLOBULIN 3.2 G/DL (2.5-4.1); GLUCOSE, SERUM 122 MG/DL (60-99); POTASSIUM, SERUM 4.4 MMOL/L (3.5-5.3); SGOT(AST) 101 U/L (5-40); SGPT(ALT) 167 U/L (5-65); SODIUM, SERUM 134 MMOL/L (135-148); TOTAL PROTEIN 5.7 G/DL (6.0-8.5)
[2017-07-01 05:24] LABS: BASOPHILS 0.1 %; BASOPHILS ABSOLUTE 0.01 10/3/uL (0.0-0.16); EOSINOPHILS 0.5 %; EOSINOPHILS ABSOLUTE 0.04 10/3/uL (0.0-0.53); HEMATOCRIT 28.7 % (36.0-48.0); IMMATURE GRANULOCYTES 0.2 %; IMMATURE GRANULOCYTES ABSOLUTE 0.02 10/3/uL (0.0-0.11); LYMPHOCYTES 9.3 %; LYMPHOCYTES ABSOLUTE 0.81 10/3/uL (0.67-4.30); MEAN CORPUS HGB CONC 34.8 g/dL (32.0-36.0); MEAN CORPUSCULAR HEMOGLOB 30.6 pg (26.0-34.0); MEAN CORPUSCULAR VOLUME 87.8 fL (80-100); MEAN PLATELET VOLUME 10.7 fL (9.2-13.0); MONOCYTES 6.8 %; MONOCYTES ABSOLUTE 0.59 10/3/uL (0.21-1.20); NEUTROPHILS 83.1 %; NEUTROPHILS ABSOLUTE 7.22 10/3/uL (2.02-8.40); PLATELET COUNT 344 10/3/uL (150-400); RBC DISTRIBUTION WIDTH 15.7 % (12.0-16.0); RED CELL COUNT 3.27 10/6/uL (4.0-5.6)
[2017-07-01 05:30] LABS: A/G RATIO 0.9 (0.7-1.9); ALBUMIN 2.6 G/DL (3.5-5.0); ALKALINE PHOSPHATASE 235 U/L (45-117); BUN (BLOOD UREA NITROGEN) 7 MG/DL (6-23); CALCIUM, SERUM 8.9 MG/DL (8.5-10.4); CHLORIDE, SERUM 101 MMOL/L (96-112); CO2 (CARBON DIOXIDE) 27 MMOL/L (24-34); CREATININE 0.81 MG/DL (0.55-1.02); GFR AFRICAN AMERICAN 82 ML/MIN (>=60); GFR NON AFRICAN AMERICAN 71 ML/MIN (>=60); GLOBULIN 2.9 G/DL (2.5-4.1); GLUCOSE, SERUM 120 MG/DL (60-99); POTASSIUM, SERUM 4.6 MMOL/L (3.5-5.3); SGOT(AST) 70 U/L (5-40); SGPT(ALT) 133 U/L (5-65); SODIUM, SERUM 132 MMOL/L (135-148); TOTAL BILIRUBIN 8.9 MG/DL (0-1.2); TOTAL PROTEIN 5.5 G/DL (6.0-8.5)
[2017-07-01 05:45] LABS: MANUAL DIFF NO %; WHITE BLOOD CELLS 8.7 10/3/uL (4.5-10.5)
[2017-07-01] MEDS ORDERED: MIRALAX POWDER1 PKT PO (09:57)
[2017-07-01] MEDS ORDERED: SENTAB PO (09:58)
== END 2017-07-01 10:50 | disposition home or self-care (01) | DRG 445 ==
LOC: ENRESERVTM → ENRESERV → ENRESERVDT → 4EA 16:21
PROVIDERS: Family Medicine; Internal Medicine; Nurse Practitioner Family; Surgery
DX: K83.1 Obstruction of bile duct (principal); R17 Unspecified jaundice; I48.0 Paroxysmal atrial fibrillation; E88.09 Other disorders of plasma-protein metabolism, not elsewhere classified; Z68.1 Body mass index [BMI] 19.9 or less, adult; R63.0 Anorexia; K83.8 Other specified diseases of biliary tract; I10 Essential (primary) hypertension; Z88.2 Allergy status to sulfonamides; Z88.8 Allergy status to other drugs, medicaments and biological substances; M19.90 Unspecified osteoarthritis, unspecified site; Z80.8 Family history of malignant neoplasm of other organs or systems; D64.9 Anemia, unspecified
CPT/HCPCS: 47534; 74330; 80048; 80053; 80076; 82150; 82248; 83690; 83735; 84100; 84443; 85025; 85610; 86301; 86304; 88305; 93005; A9270-GY; C1725; C1729; C1769; C1887; C1894; J1170; J1956; J2405; J2550; J2710; J3010; Q9967